=== PATIENT | male | born 1945 | race Hispanic/Latino ===

== ENCOUNTER 2019-07-31 15:07 | Emergency (ER) | payer BC, MEDICARE ==
[~2019-07-31] VITALS: Ht 172.7 cm; Wt 78.9 kg
[~2019-07-31 15:07] MED LIST: FOLIC ACID PO; LANTUS100 UNITS/ SQ; LISINOPRIL PO; LOVASTATIN PO; METFORMIN PO
[2019-07-31 16:57] LABS: HEMOGLOBIN 8.1 g/dL (14.0-18.0)
== END 2019-07-31 17:18 | disposition home or self-care (01) ==
LOC: ER 15:07
DX: I12.9 Hypertensive chronic kidney disease with stage 1 through stage 4 chronic kidney disease, or unspecified chronic kidney disease (principal); D63.1 Anemia in chronic kidney disease; E11.22 Type 2 diabetes mellitus with diabetic chronic kidney disease; N18.9 Chronic kidney disease, unspecified; Z79.4 Long term (current) use of insulin; E78.5 Hyperlipidemia, unspecified
CPT/HCPCS: 36415; 85014; 85018; 99283